=== PATIENT | female | born 1930 | race Caucasian/White ===

== ENCOUNTER → 2018-03-31 | Outpatient (CLI) | payer MEDICARE, OTHER ==
[~2018-03-31] MED LIST: BUPIVACAINE MPF 0.5% 10 ML VIAL for KCIC. IJ; IOHEXOL 300 MG/ML 50 ML VIAL. INT ART; LIDOCAINE 1% Multi-Dose 20 ML VIAL. ID; methylPREDNISolone ACETATE 40 MG/ML VIAL. INT ART
== END | disposition home or self-care (01) ==
LOC: KCIC 12:26
DX: M16.12 Unilateral primary osteoarthritis, left hip (principal); G89.29 Other chronic pain
CPT/HCPCS: 20610; 77002

== ENCOUNTER → 2018-06-27 | Outpatient (CLI) | payer MEDICARE, OTHER ==
[~2018-06-27] MED LIST changes: -BUPIVACAINE MPF 0.5% 10 ML VIAL for KCIC. IJ; +IOHEXOL 180 MG/ML 10 ML VIAL. ONE; -IOHEXOL 300 MG/ML 50 ML VIAL. INT ART; -LIDOCAINE 1% Multi-Dose 20 ML VIAL. ID; +LIDOCAINE 2% PF 2ML VIAL. ONE; +MECL25TA3 PO; +OXYC10TA PO; +SERT100T PO; +TOLT4CAP PO; +TRAM50TA PO; +lidocaine patch TOP; -methylPREDNISolone ACETATE 40 MG/ML VIAL. INT ART; +tylenol pm
--- NOTE | 2018-06-27 19:31 | PAIN ---
DATE OF SERVICE: 06/27/2018 INITIAL CONSULTATION FOR PAIN CLINIC CHIEF COMPLAINT: Left hip joint pain. HISTORY OF PRESENT ILLNESS: This is an 88-year-old female who presents with history of pain for about 2 years increasing over the past 6-8 months. The patient reports significant pain in the left hip and groin, mostly with walking and standing, putting weight on her legs. She is almost completely wheelchair bound and reports that she does not feel that she will ever be able to walk again regularly. She has had a right hip replacement in the past, but her left hip is her main complaint with significant pain, worse with standing and walking. The patient has some imaging showing end-stage osteoarthritis of the left hip with bony remodeling and a right hip arthroplasty in good position. The patient is trying to avoid any more surgical procedures and would like to try all modalities instead of that. The patient has had physical therapy in the past, has had chiropractic treatment. None of these have helped significantly. She has had some physical therapy on her hip most recently, was doing exercise on her own mostly at this time. The patient was seen by her orthopedic physician, Dr. Pablo Novoa and is recommending consideration of surgical replacement, although the patient is adamant against that she did have one steroid injection in the left hip at outside facility, which did not help, the patient reports even for 1 day. We discussed this with Dr. Novoa's office and the patient would like to proceed with Synvisc injection, and she will take care of purchasing the medication on her own, and presents today for evaluation. The patient reports pain is intermittent in intensity, only with weightbearing, standing to the left groin, anterior thigh as well as in the posterior hip and lateral hip, worse with standing, walking, changing positions, especially stepping on stairs or any weightbearing with the left leg significantly over the right. The patient reports her disability rate from 0-10, 10 being the worst and 8 with family home responsibilities, recreation and occupation, 9 with social activity, 10 with sexual behavior, 5 with self-care and 2 with life support activities. The patient tried Tylenol PM, oxycodone, tramadol and lidocaine patches all of which helped to some extent, but not 100%. The patient is using a walker and a wheelchair to ambulate. Reports the pain does not awaken her up at night. She feels when she is lying down or sitting down, the pain is essentially gone. She is using a walker or wheelchair to ambulate as it does significantly impair her ambulation ability. PAST MEDICAL HISTORY: Significant for hypertension, arthritis, hiatal hernia. PREVIOUS SURGERY: Include D and C, cataract extractions, toe surgery; spinal procedure, she is unsure what it was in the past and right hip replacement in 2014. CURRENT MEDICATIONS: Include lidocaine patch, Detrol, sertraline, tramadol, oxycodone and meclizine. ALLERGIES: The patient has no known drug allergies. FAMILY HISTORY: Significant for arthritis. SOCIAL HISTORY: The patient does not drink, does not smoke, does not use any illegal or recreational drugs. She is , lives with her spouse, lives locally in [place], [place] and is retired. REVIEW OF SYSTEMS: The patient's review of systems is positive for those items mentioned in history of present illness. All systems reviewed and otherwise negative. It is complete, full and well documented on the patient's chart. PHYSICAL EXAMINATION: VITAL SIGNS: The patient's blood pressure is 147/74, pulse 71, respirations 16, temperature is 98.1 degrees Fahrenheit. Height is 5 feet 7 inches. The patient's estimated weight about 200 pounds as she is unable to stand long enough to stand on the scale to measure it. GENERAL: The patient is awake, alert, oriented, appropriate, very pleasant demeanor. HEENT: Head shows normocephalic, atraumatic. Extraocular muscles are intact and symmetrical. Oral cavity: Mucous membranes moist and pink. Dentition intact. NECK: Shows anterior throat supple without palpable lymphadenopathy noted. Swallow reflex symmetrical. CHEST: Shows normal on inspection. Breath sounds are clear to auscultation bilaterally. HEART: Shows S1, S2 clear. No murmurs auscultated. ABDOMEN: Soft, nontender, nondistended. No palpable organomegaly. There is no rebound or guarding demonstrated. BACK: Shows spine grossly in the midline, normal-appearing thoracic kyphosis, some minor flattening of the lower lumbar lordotic curvature. Lumbar paraspinous muscle shows symmetrical on inspection. No asymmetry, atrophy, hypertrophy. With palpation shows some moderate tenderness bilaterally, but only diffusely. In the low lumbar distribution, paraspinous musculature is symmetrical and equal, however. The patient shows good rotational motion of the lumbar spine both laterally as well as extension and flexion without difficulty. No tenderness over the spinous processes, sacrum or sacroiliac regions. LOWER EXTREMITIES: Show deep tendon reflexes 1+ in the patellar and tendo-calcaneus tendons. Motor exam is approximately 3 on a scale 5 with quadriceps and hamstring flexion on the left and 4/5 on the right. Dorsiflexion and extension is about 4-5 with bilateral dorsiflexion and extension. Peripheral pulses are 1+ posterior tibial. The patient has significant positive Semaj's maneuver with external rotation of the left hip and knee flexion, right side is negative. The patient has difficulty even getting out of the wheelchair to stand, put weight on her left leg, significantly painful in the groin and hip laterally as well. The patient has a very short distance of walk, probably 3-4 steps maximum for which she requires to sit down once again. IMPRESSION: 1. This is an 88-year-old female with approximately 2-year history of increasing pain, left hip with several-month history of significant inability to bear weight on her left hip secondary to pain. 2. X-rays of the pelvis and hip as noted. 3. Arthritis. 4. Hypertension. PLAN: Options were discussed with the patient including conservative medical management, physical therapy, interventional techniques and she would like to pursue interventional techniques and does have the Synvisc already purchased. We will proceed with a left hip joint intra-articular injection with Synvisc. Risks were discussed including, but not limited to, bleeding, infection, possibility of intravascular injection sequelae, spread of local anesthetic and numbness, spread of Synvisc and poor results regarding pain control as well as exposure to fluoroscopy. The patient understands and wished to proceed. The patient will return to the clinic in approximately 2 weeks for followup. She was counseled to return appointment, activity level and side effects to be aware of. DIAGNOSIS: Primary osteoarthritis, left hip joint with left hip joint pain. PROCEDURE: Left intraarticular hip joint injection using C-arm fluoroscopic guidance under sterile prep and drape using local anesthetic. MEDICATION INJECTED: A total of 6 mL of Synvisc with 2 mL of Isovue for contrast. CONDITION AT DISCHARGE: Stable. The patient tolerated procedure well, had no complications. HERSON KOROMA MD DR: TAMMY/radha JOB#: [id number] / [id number] PABLO Alejandre MD, PETER MD
== END | disposition home or self-care (01) ==
LOC: PNCL 13:28
PROVIDERS: ATTEND Anesthesiology
DX: M16.12 Unilateral primary osteoarthritis, left hip (principal); I10 Essential (primary) hypertension; Z98.890 Other specified postprocedural states; Z96.641 Presence of right artificial hip joint; Z98.49 Cataract extraction status, unspecified eye; Z96.1 Presence of intraocular lens; Z79.899 Other long term (current) drug therapy; Z82.61 Family history of arthritis
CPT/HCPCS: 20610; 77002; J2001; Q9965